=== PATIENT | male | born 1970 | race Two or more races ===

== ENCOUNTER 2024-10-26 07:21 | Emergency (ER) | payer MEDICAID, SELFPAY ==
[2024-10-26 07:25] VITALS: BMI 23.3
--- NOTE | 2024-10-26 07:29 | EDNOTE_ITS ---
Nausea/Vomit./Diarrhea-RME/HPI General Chief complaint: Nausea/Vomiting/Diarrhea Stated complaint: n/v 0500 today Time Seen by Provider: 10/26/24 07:24 Arrival date/time: 10/26/24 07:21 RME / HPI RME / HPI Narrative: This section includes all my notes and documentations, including HPI, PE, and ED course.? Gabe Leong MD HPI: 54 year old male presents to the ED [facility] from home for evaluation of nausea and nonbloody vomiting beginning at 05:00 am today. Accompanied by chills and dizziness. Per RN, medics administered Zofran en route with some improvement. Patient denies any fevers, sweats, abdominal pain, diarrhea, constipation, or urinary symptoms. Denies any recent travel. No other complaints. ROS: All negative except as documented in HPI. Physical Exam: General:? Alert and oriented.??Appearance of malaise noted. Eyes:? Conjunctivae and lids clear.?? ENT:? No nasal congestion.?? Neck:? Supple.?? Lungs:? No respiratory distress.?? Abdomen:? Soft and nontender.?? Skin:? Warm and dry.?? Neuro:? Alert and oriented X 3.?? I reviewed all diagnostic test results. My interpretation of the abdominal X-ray is no acute findings. Blood tests unremarkable. At this point, diagnoses include?gastroenteritis. Treatment here included?IV fluid and Zofran and Reglan. Significant improvement noted. Recommended supportive care. Based on my best medical judgment, made decision no further evaluation or treatment indicated at this time.? Patient understands and agrees to the discharge instructions customized and printed, see below. Discharge Instructions from Dr. Leong: 1. After evaluation, you have stomach flu.? See attached handout on gastroenteritis. 2. This is caused by virus germs.? And we do not have good medications to kill the virus germs.? But your immune system will fight it off. 3. Your job is to stay hydrated.? Zofran or Reglan for nausea/vomiting.? Increase oral fluid and maintain clear urine.? If dark or yellow, increase oral fluid. 4. Do not take any medications to stop your diarrhea.? But try to replenish the fluid and electrolytes you are losing. 5. Some good choices are water (but not only water because it will cause electrolyte abnormalities), sports drinks like Gatorade (with less sugar content), coconut water, chicken stock, and other fluid with electrolytes (like Pedialyte). 6. See a private doctor on 10/29/2024 if not completely better. 7. Seek immediate medical care with worsening or with any concerns. Gabe Leong MD Related Data Previous Rx's ?Medication ?Instructions ?Recorded metoclopramide HCl 10 mg tablet 10 mg PO Q6H PRN nausea and 10/26/24 (Reglan) vomiting #20 tabs ondansetron 4 mg disintegrating 4 mg PO TID PRN nausea and 10/26/24 tablet vomiting 5 days #10 tabs Allergies Allergy/AdvReac Type Severity Reaction Status Date / Time No Known Allergies Allergy Verified 10/26/24 07:24 Review of Systems Review of Systems Systems Reviewed: All systems reviewed, normal except as documented Past Medical History Social History SMOKING STATUS: Never smoker ED Exam Narrative Physical exam: As noted in HPI Course Quality Measures none Orders Category Date Time Status Saline [Insert IV] NOW Care 10/26/24 07:30 Active KUB [XR abdomen 1V] Stat Exams 10/26/24 07:30 Completed Amylase Stat Lab 10/26/24 08:06 Completed CBC Stat Lab 10/26/24 08:06 Completed CMP [Comprehensive Metabolic Panel] Stat Lab 10/26/24 08:06 Completed Lipase Stat Lab 10/26/24 08:06 Completed Magnesium Stat Lab 10/26/24 08:06 Completed Metoclopramide Inj [Reglan Inj] Med 10/26/24 07:29 Discontinued 10 mg IVP X1 ONE Ondansetron Inj [Zofran Inj] Med 10/26/24 08:01 Discontinued 4 mg IV X1 ONE Sodium Chloride 0.9% 1000 ml [Ns] 1,000 ml Med 10/26/24 07:29 Discontinued IV 999 mls/hr Vital Signs Vital signs: Vital Signs Temperature 97.8 F 10/26/24 07:38 Pulse Rate 52 L 10/26/24 07:38 Respiratory Rate 16 10/26/24 07:38 Blood Pressure 132/83 H 10/26/24 07:38 Pulse Oximetry (%) 96 10/26/24 07:38 Oxygen Delivery Method Room Air 10/26/24 07:38 Nausea/Vomiting/Diarrhea MDM Narrative MDM Narrative:: Mervat Elizabeth am scribing for and in the presence of Dr. Leong. Patient data External records reviewed:: EMS form Clinical information provided by:: patient and EMS Social determinants that could affect healthcare access:: none Patient has the following chronic illnesses:: None How is presenting disease/condition affected by chronic disease/condition?: no chronic disease Evaluation data The following diagnostics were reviewed and interpreted by me:: lab results and radiology exam(s) Lab and/or radiology exams considered but not ordered:: None Interpretation Summary: Gastroenteritis Medications / Prescriptions Medications / Prescriptions considered but not ordered:: None Medication administrations:: Medication Administration History Discontinued Medications Sodium Chloride (Ns) 1,000 mls @ 999 mls/hr IV .Q1H1M ONE Stop: 10/26/24 08:29 Last Admin: 10/26/24 08:05 Dose: 999 mls/hr Documented By: MARCO Metoclopramide HCl (Metoclopramide Inj 5 Mg/Ml Vial 2 Ml) 10 mg IVP X1 ONE; Protocol Stop: 10/26/24 07:30 Last Admin: 10/26/24 08:09 Dose: 10 mg Documented By: MARCO Ondansetron HCl (Ondansetron Inj 2 Mg/Ml Inj 2 Ml) 4 mg IV X1 ONE; Protocol Stop: 10/26/24 08:02 Last Admin: 10/26/24 08:15 Dose: 4 mg Documented By: MARCO IV fluid and Zofran and Reglan Consultations Consultation(s) initiated? (list below): No Diagnosis Nausea Differential Diagnosis: traveler's diarrhea, food poisoning, gastr oenteritis, drug-induced nausea and vomiting and dehydration Most likely diagnosis given after review of the tests above:: Stomach flu Admission Indicated Admission indicated?: not indicated Explain why admission is indicated or not indicated:: Admission criteria not met Admission Request Was there a request for admission?: No Disposition Plan Disposition Plan: Discharge Discharge Attestation Discharge Attestation: The patient and all family members were given an opportunity to ask questions and understood the discharge instructions. Discharge instructions specifically effects, indications for sooner follow up or return to the emergency department, and the expected course of current diagnosis. Patient condition: Stable Discharge Plan Plan Patient Disposition: HOME (Self Care) Prescriptions/Referrals Prescriptions/Med Rec: New ondansetron 4 mg tablet,disintegrating 4 mg PO TID PRN (Reason: nausea and vomiting) 5 Days Qty: 10 0RF metoclopramide HCl [Reglan] 10 mg tablet 10 mg PO Q6H PRN (Reason: nausea and vomiting) Qty: 20 0RF Referrals: Jennifer Waite FNP ([facility]) [Primary Care Provider] - In 1 week Problem List Clinical Impression: Stomach flu Patient/Caregiver Discharge Instructions Discharge Activity: activity as tolerated Education Materials: ED Gastroenteritis, Viral (Adult) Additional Instructions: Discharge Instructions from Dr. Leong: 1. After evaluation, you have stomach flu.? See attached handout on gastroenteritis. 2. This is caused by virus germs.? And we do not have good medications to kill the virus germs.? But your immune system will fight it off. 3. Your job is to stay hydrated.? Zofran or Reglan for nausea/vomiting.? Increase oral fluid and maintain clear urine.? If dark or yellow, increase oral fluid. 4. Do not take any medications to stop your diarrhea.? But try to replenish the fluid and electrolytes you are losing. 5. Some good choices are water (but not only water because it will cause electrolyte abnormalities), sports drinks like Gatorade (with less sugar content), coconut water, chicken stock, and other fluid with electrolytes (like Pedialyte). 6. See a private doctor on 10/29/2024 if not completely better. 7. Seek immediate medical care with worsening or with any concerns. Print Language: Upper Sorbian Stand Alone Forms: Rosa Award Info., Patient Portal Info Letter
--- NOTE | 2024-10-26 07:30 | XR_ITS ---
Examination: Abdomen AP single view Technique: AP portable supine abdomen, single view Exam date and time: October 26, 2024 0741 hrs. Indications: Abdominal pain nausea vomiting today Findings: Minimal air distended small bowel loops No obstruction No free air Left ventricle appears prominent Moderate stool throughout the colon Impression: Nonobstructive bowel gas pattern
[2024-10-26 07:38] VITALS: BP 132/83; PULSE 52; RESP 16; TEMP 36.6; O2SAT 96
[2024-10-26] MEDS: SODIUM CHLORIDE 0.9% 1000 ML 1,000 ML 999 ML IV (08:05)
[2024-10-26] MEDS: METOCLOPRAMIDE INJ 5 MG/ML VIAL 2 ML 10 MG IVP (08:09)
[2024-10-26] MEDS: ONDANSETRON INJ 2 MG/ML INJ 2 ML 4 MG IV (08:15)
[2024-10-26 08:19] LABS: Basophils % (Auto) 0 % (0-2.5); Eosinophils # (Auto) 0.1 Thou/mm3 (0.0-0.5); Eosinophils % (Auto) 1 % (0-10); Hematocrit 44.7 % (41.0-53.0); Hemoglobin 16.3 g/dL (13.5-16.0); Immature Granulocytes % (Auto) 1 % (0-0); Immature Granulocytes Auto 0.09 Thou/mm3 (0.00-0.00); Lymphocytes # (Auto) 1.2 Thou/mm3 (1.0-4.8); Lymphocytes % (Auto) 14 % (10-50); Mean Corpuscular HGB Conc 36.5 g/dl (31.0-37.0); Mean Corpuscular Hemoglobin 31.1 pg (25.0-35.0); Mean Corpuscular Volume 85 fL (80-100); Monocytes # (Auto) 0.4 Thou/mm3 (0.0-0.8); Monocytes % (Auto) 4 % (0-12); Neutrophils # (Auto) 6.9 Thou/mm3 (1.8-7.7); Neutrophils % (Auto) 80 % (37-80); Nucleated Red Blood Cell % 0 /100 WBC (0); Platelet Count 244 Thou/mm3 (140-440); RDW Standard Deviation 37.1 fL (35.1-43.9); Red Blood Count 5.24 Miln/mm3 (4.50-5.90); White Blood Count 8.7 Thou/mm3 (3.8-10.6)
[2024-10-26 08:35] LABS: Alanine Aminotransferase 45 U/L (10-49); Albumin, Serum 4.5 gm/dL (3.5-5.0); Albumin/Globulin Ratio 1.9 (1.2-2.2); Alkaline Phosphatase 151 U/L (46-116); Amylase 37 U/L (30-118); Anion Gap 6 (7-16); Aspartate Amino Transferase 31 U/L (0-34); BUN/Creatinine Ratio 16 Ratio (12-20); Bilirubin,Total 0.7 mg/dL (0.3-1.2); Blood Urea Nitrogen 14 mg/dL (9-23); Carbon Dioxide 24.2 mMol/L (20.0-31.0); Chloride 106 mMol/L (98-107); Creatinine (Component) 0.9 mg/dL (0.6-1.3); Estimated Creatinine Clearance 81.6 mL/min (>60); Globulin 2.4 gm/dL (2.3-3.5); Glucose 148 mg/dL (74-106); Lipase 32 U/L (12-53); Magnesium 1.9 mg/dL (1.6-2.6); Osmolality,Calculated 275 (275-295); Potassium 3.6 mMol/L (3.4-5.1); Sodium 136 mMol/L (136-145); Total Protein 6.9 gm/dL (5.7-8.2); eGFR > 60 See Note
[2024-10-26 09:35] VITALS: BP 114/80; PULSE 60; RESP 16; O2SAT 95
== END 2024-10-26 09:45 | disposition home or self-care (01) ==
PROVIDERS: Emergency Provider Emergency Medicine; PCP Nurse Practitioner Primary Care
DX: A08.4 Viral intestinal infection, unspecified (principal)
CPT/HCPCS: 36415; 74018; 80053; 82150; 83690; 83735; 85025; 96361; 96374; 96375; 99284; J2405; J2765; J7030

== ENCOUNTER 2025-03-25 11:25 | Day surgery (SDC) | payer MEDICAID, SELFPAY ==
[2025-03-22 13:19] VITALS: BMI 25.0
[2025-03-22 15:45] LABS: Basophils % (Auto) 0 % (0-2.5); Eosinophils # (Auto) 0.1 Thou/mm3 (0.0-0.5); Eosinophils % (Auto) 1 % (0-10); Hematocrit 44.6 % (41.0-53.0); Hemoglobin 16.3 g/dL (13.5-16.0); Immature Granulocytes % (Auto) 0 % (0-0); Immature Granulocytes Auto 0.03 Thou/mm3 (0.00-0.00); Lymphocytes # (Auto) 2.1 Thou/mm3 (1.0-4.8); Lymphocytes % (Auto) 23 % (10-50); Mean Corpuscular HGB Conc 36.5 g/dl (31.0-37.0); Mean Corpuscular Hemoglobin 31.7 pg (25.0-35.0); Mean Corpuscular Volume 87 fL (80-100); Monocytes # (Auto) 0.6 Thou/mm3 (0.0-0.8); Monocytes % (Auto) 6 % (0-12); Neutrophils # (Auto) 6.4 Thou/mm3 (1.8-7.7); Neutrophils % (Auto) 70 % (37-80); Nucleated Red Blood Cell % 0 /100 WBC (0); Platelet Count 261 Thou/mm3 (140-440); RDW Standard Deviation 38.2 fL (35.1-43.9); Red Blood Count 5.15 Miln/mm3 (4.50-5.90); White Blood Count 9.1 Thou/mm3 (3.8-10.6)
[2025-03-22 15:57] LABS: Alanine Aminotransferase 52 U/L (10-49); Albumin, Serum 4.4 gm/dL (3.5-5.0); Albumin/Globulin Ratio 1.8 (1.2-2.2); Alkaline Phosphatase 160 U/L (46-116); Anion Gap 7 (7-16); Aspartate Amino Transferase 33 U/L (0-34); BUN/Creatinine Ratio 18 Ratio (12-20); Bilirubin,Total 0.8 mg/dL (0.3-1.2); Blood Urea Nitrogen 18 mg/dL (9-23); Calcium 8.8 mg/dL (8.3-10.6); Calcium (Corrected) 8.8 mg/dL (8.5-10.1); Carbon Dioxide 25.9 mMol/L (20.0-31.0); Chloride 107 mMol/L (98-107); Estimated Creatinine Clearance 73.5 mL/min (>60); Globulin 2.5 gm/dL (2.3-3.5); Glucose 115 mg/dL (74-106); Osmolality,Calculated 282 (275-295); Potassium 3.6 mMol/L (3.4-5.1); Sodium 140 mMol/L (136-145); Total Protein 6.9 gm/dL (5.7-8.2); eGFR > 60 See Note
[2025-03-22 17:16] LABS: Partial Thromboplastin Time 29.8 Seconds (22.0-36.0); Prothrombin Time 11.4 Seconds (9.0-12.2)
[2025-03-25] VITALS (8 sets, daily range): BP systolic 102–140; BP diastolic 70–94; PULSE 49–74; RESP 12–20; TEMP 36.6–37.1; O2SAT 95–98; BMI 24.5
[2025-03-25] MEDS: RINGERS LACTATED 1000 ML 1,000 ML 20 ML IV (14:10)
--- NOTE | 2025-03-25 14:31 | SUR.PHASEII ---
1431 Patient arrived to recovery, awake and alert, breathing unlabored, vital signs stable, denies pain and nausea report received from Luz BIGGS and Dr Rushing SRNA
--- NOTE | 2025-03-25 14:56 | XR_ITS ---
Examination: Gastrografin enema [employer] KUB 10 spot fluoroscopic films of the abdomen Exam date and time: March 25, 2025 1526 hours INDICATIONS: Incomplete colonoscopy today TECHNIQUE AND FINDINGS: Infiltrate in retrograde manner to the cecum with reflux into terminal ileum House of aberrant unremarkable No colonic diverticulitis No constricting colonic lesion No rectal or other colonic ulcerations Fluoroscopy 0.4 minute radiation dose 39.43 milligray 10 spot fluoroscopic films of the abdomen IMPRESSION: No colonic lesion identified
--- NOTE | 2025-03-25 15:19 | SUR.PHASEII ---
1519 Patient meets discharge criteria from recovery, awake and alert, breathing unlabored, vital signs stable, denies pain and nausea, assisted with dressing into his clothing by his , discharge instructions given to patient and patients /daughter, signed discharge instructions. Patient given all his belongings prior to discharge, transported via wheelchair to [facility] to complete Barium Enema per MD order.
== END 2025-03-25 15:19 | disposition home or self-care (01) ==
PROVIDERS: Anesthesiology; PCP Nurse Practitioner Primary Care; Referring Provider Surgery; Visit Provider Surgery
PROC: 0DJD8ZZ Inspection of Lower Intestinal Tract, Via Natural or Artificial Opening Endoscopic (ICD-10-PCS; CPT 45378; principal; 2025-03-25 13:45)
DX: Z12.11 Encounter for screening for malignant neoplasm of colon (principal); K59.89 Other specified functional intestinal disorders
CPT/HCPCS: 45330; 36415; 74270; 80053; 85025; 85610; 85730; J7120

== ENCOUNTER 2025-08-02 12:38 | Emergency (ER) | payer MEDICAID, SELFPAY ==
--- NOTE | 2025-08-02 13:03 | EDNOTE_ITS ---
ED Male Genitalurinary RME/HPI General Chief complaint: Urogenital-Male Stated complaint: PAINFUL URINATION Time Seen by Provider: 08/02/25 12:46 Source: patient Arrival date/time: 08/02/25 12:38 54-year-old male with no known medical history presents to the emergency room with a chief complaint of dysuria x 3 days Mode of arrival: ambulatory Limitations: no limitations Related Data Home Medications ?Medication ?Instructions ?Recorded ?Confirmed loratadine 10 mg tablet 10 mg PO Q24H 03/22/2503/22 tamsulosin 0.4 mg capsule 0.4 mg PO Q24H 03/22/2508/08 Allergies Allergy/AdvReac Type Severity Reaction Status Date / Time No Known Allergies Allergy Verified 08/02/25 12:42 Review of Systems Review of Systems Systems Reviewed: All systems reviewed, normal except as documented Constitutional Constitutional: Reports system reviewed and no additional complaints, except as documented, Denies fatigue, Denies fever(s), Denies headache(s) and Denies weakness Eyes Eyes: Reports system reviewed and no additional complaints, except as documented, Denies blurry vision and Denies change in vision ENT Ears, Nose, Mouth, and Throat: Reports system reviewed and no additional complaints, except as documented, Denies otalgia, Denies headache(s), Denies nasal congestion, Denies throat swelling and Denies vertigo Cardiovascular Cardiovascular: Reports system reviewed and no additional complaints, except as documented, Denies chest pain, Denies dyspnea and Denies dyspnea on exertion Respiratory Respiratory: Reports system reviewed and no additional complaints, except as documented, Denies chest congestion, Denies cough, Denies dyspnea, Denies dyspnea on exertion and Denies wheezing Gastrointestinal Gastrointestinal: Reports system reviewed and no additional complaints, except as documented, Denies abdominal pain, Denies cramping, Denies nausea and Denies vomiting Genitourinary Genitourinary: Reports system reviewed and no additional complaints, except as documented, Reports difficulty urinating, Denies dysuria and Denies hematuria Musculoskeletal Musculoskeletal: Reports system reviewed and no additional complaints, except as documented and Denies back pain Integumentary/Breasts Skin/Breast: Reports system reviewed and no additional complaints, except as documented and Denies wounds Neurologic Neurologic: Reports system reviewed and no additional complaints, except as documented, Denies confusion, Denies headache(s), Denies lack of coordination, Denies vertigo and Denies weakness Psychiatric Psychiatric: Reports system reviewed and no additional complaints, except as documented, Denies anxiety, Denies confusion, Denies depression, Denies paranoia, Denies suicidal ideation and Denies tactile hallucinations Endocrine Endocrine: Reports system reviewed and no additional complaints, except as documented and Denies fatigue Hematologic/Lymphatic Hematologic/Lymphatic: Reports system reviewed and no additional complaints, except as documented and Denies lymphadenopathy Allergic/Immunologic Allergic/Immunologic: Reports system reviewed and no additional complaints, except as documented, Denies throat swelling, Denies urticaria and Denies wheezing Past Medical History Past Medical History NEUROLOGIC: Negative Seizures CARDIAC: Negative Cardiac Disorders or Congestive Heart Failure RESPIRATORY: Negative Chronic Obstructive Pulmonary Disease (COPD) GASTROINTESTINAL: Positive Gastrointestinal Disorders and Gastroesophageal Reflux Disease GENITOURINARY: Positive Genitourinary Disorders and Benign Prostatic Hyperplasia; Negative Renal Disease ENDOCRINE: Negative Diabetes Mellitus Type 1 or Diabetes Mellitus Type 2 OTHER HISTORY: Negative Blood Transfusions or Anesthesia Reactions Social History SMOKING STATUS: Former smoker ED Exam General Limitations: Present no limitations General appearance: Present alert and in no apparent distress Head Head exam: Present atraumatic Eye Eye exam: Present normal appearance, PERRL and EOMI ENT ENT exam: Present normal exam, normal oropharynx and mucous membranes moist Neck Neck exam: Present normal inspection, full ROM and trachea midline Chest Chest inspection: Present normal inspection and symmetric chest wall rise Respiratory Respiratory exam: Present normal lung sounds bilaterally Cardiovascular Cardiovascular exam: Present regular rate, normal rhythm and normal heart sounds Abdominal Exam Abdominal exam: Present soft and normal bowel sounds; Absent distention, tenderness or guarding Extremities Exam Extremities exam: Present normal inspection and full ROM Back Exam Back exam: Present normal inspection and full ROM Neurological Exam Neurological exam: Present alert, oriented X3 and CN II-XII intact Psychiatric Psychiatric exam: Present normal affect and normal mood Skin Skin exam: Present warm, dry, intact and normal color Course Quality Measures none Orders Category Date Time Status UA, C/S IF [Urinalysis, C/S if Indicated] Stat Lab 08/02/25 13:45 Completed Urine Culture Stat Lab 08/02/25 13:45 Received Vital Signs Vital signs: Vital Signs Temperature 99.6 F 08/02/25 13:04 Pulse Rate 77 08/02/25 13:04 Respiratory Rate 18 08/02/25 13:04 Blood Pressure 144/80 H 08/02/25 13:04 Pulse Oximetry (%) 98 08/02/25 13:04 Oxygen Delivery Method Room Air 08/02/25 13:04 Urogenital - Male MDM Narrative MDM Narrative:: 54-year-old male with no known medical history presents to the emergency room with a chief complaint of dysuria x 3 days Patient is hemodynamically stable and in no apparent distress Physical examination shows a soft nontender abdomen. Urinalysis was completed and was negative for any urinary tract infection. Patient was educated to follow-up with his primary care provider for further management and to check for any prostate problems. Patient is urinating normally Patient was discharged and educated to follow-up with primary care provider in the next 24 to 48 hours and return to the emergency room for any evidence of worsening signs or symptoms Patient data External records reviewed:: [facility] previous records Clinical information provided by:: patient Social determinants that could affect healthcare access:: none Patient has the following chronic illnesses:: No chronic illness How is presenting disease/condition affected by chronic disease/condition?: no chronic disease Evaluation data The following diagnostics were reviewed and interpreted by me:: lab results and radiology exam(s) Lab and/or radiology exams considered but not ordered:: Labs and radiology exams considered and ordered Interpretation Summary: N/A Medications / Prescriptions Medications or Prescriptions considered but not ordered:: No medication Medication administrations:: No medication given Consultations Consultation(s) initiated? (list below): No Diagnosis Urogenital Male Differential Diagnosis: urinary tract infection, prostatitis, acute retention of urine and other (Dysuria) Most likely diagnosis given after review of the tests above:: Dysuria Admission Indicated Admission indicated?: not indicated Admission Request Was there a request for admission?: No Disposition Plan Disposition Plan: Discharge Discharge Attestation Discharge Attestation: The patient and all family members were given an opportunity to ask questions and understood the discharge instructions. Discharge instructions specifically effects, indications for sooner follow up or return to the emergency department, and the expected course of current diagnosis. Patient condition: Stable Discharge Plan Plan Patient Disposition: HOME (Self Care) Discharge Disposition comment: Stable Prescriptions/Referrals Prescriptions/Med Rec: No Action tamsulosin 0.4 mg capsule 0.4 mg PO Q24H Patient Comments: take 1 capsule by mouth once daily loratadine 10 mg tablet 10 mg PO Q24H Patient Comments: take 1 tablet by mouth at bedtime Referrals: Ravindra (HENRIK),LUCY Rodriguez [Primary Care Provider] - In 1 week Problem List Clinical Impression: Dysuria Patient/Caregiver Discharge Instructions Education Materials: ED Dysuria, Uncertain Cause (Adult) Additional Instructions: Please follow-up with your primary care provider in the next 24 to 48 hours Your urinalysis was negative for any acute findings. There is no urinary tract infection Please follow-up with your primary care provider. If your sinus symptoms continue a referral to urologist may be indicated to assess for any prostate problems For any evidence of worsening signs or symptoms return to emergency room immediately Print Language: Hong Konger Stand Alone Forms: Rosa Award Info., Patient Portal Info Letter PA/ANGELY Supervising Physician KANDICE/ANGELY Supervising Physician: Dr. So
[2025-08-02 13:04] VITALS: BP 144/80; PULSE 77; RESP 18; TEMP 37.6; O2SAT 98
[2025-08-02 13:53] LABS: Collection Type, Urine Clean Catch; Squamous Epithelial Cell,Urine 0 /hpf (0-5)
[2025-08-02 14:11] LABS: Bacteria,Urine Rare; Bilirubin,Urine 2+ (Negative); Blood,Urine Negative (Negative); Clarity,Urine Clear (Clear/Hazy); Color,Urine Dark-Brown (Lt Yel-Yel); Glucose, Urine Negative (Negative); Ketones,Urine Negative (Negative); Leukocyte Esterase,Urine Negative (Negative); Nitrite,Urine Positive (Negative); PH,Urine 6.0 (5.0-7.0); Protein,Urine Trace (Neg - Trace); RBC,Urine 13 /hpf (0-3); Specific Gravity,Urine 1.034 (1.001-1.035); Urobilinogen,Urine 6.0 mg/dL (0.0-1.0); WBC,Urine 2 /hpf (0-5)
[2025-08-02 14:18] LABS: Culture Indicated,Urine Yes
== END 2025-08-02 15:18 | disposition home or self-care (01) ==
PROVIDERS: Nurse Practitioner Family; Emergency Provider Family Medicine; PCP Physician Assistant
DX: R30.0 Dysuria (principal)
CPT/HCPCS: 81001; 87086; 99283